=== PATIENT | female | born 1985 | race Caucasian/White ===

== ENCOUNTER 2017-07-09 21:48 | Inpatient (IN) | payer OTHER ==
[~2017-07-09] VITALS: Ht 165.1 cm; Wt 97.5 kg
[~2017-07-09 21:48] MED LIST: [UNRECOGNIZED DRUG - REMARK]; advil; motrin
[2017-07-09 22:02] VITALS: BP_SYST 145
[2017-07-09 23:33] LABS: BASOPHILS # (AUTO) 0.1 K/uL (0.0-0.2); BASOPHILS % (AUTO) 0.9 % (0.0-2.0); EOSINOPHILS # (AUTO) 0.1 K/uL (0.0-0.4); EOSINOPHILS % (AUTO) 1.6 % (0.0-4.0); HEMATOCRIT 38.8 % (36-48); HEMOGLOBIN 13.3 g/dL (12.0-16.0); LYMPHOCYTES # (AUTO) 1.8 K/uL (1.0-5.5); LYMPHOCYTES % (AUTO) 20.7 % (20.5-51.5); MEAN CORPUSCULAR HEMOGLOBIN 32 pg (27-31); MEAN CORPUSCULAR HGB CONC 34 % (32-36); MEAN CORPUSCULAR VOLUME 93 fL (79.0-98.0); MONOCYTES # (AUTO) 0.8 K/uL (0.0-1.0); MONOCYTES % (AUTO) 9.3 % (1.7-9.3); NEUTROPHILS # (AUTO) 6.1 K/uL (1.8-7.7); NEUTROPHILS % (AUTO) 67.5 % (40.0-70.0); PLATELET COUNT (AUTO) 235 K/uL (130-430); RED BLOOD CELL COUNT(AUTO) 4.18 MIL/uL (4.2-6.2); RED CELL DISTRIBUTION WIDTH 11.8 % (9.0-15.0); WHITE BLOOD COUNT (AUTO) 8.9 K/uL (4.8-10.8)
[2017-07-09 23:38] LABS: CALCIUM 9.5 mg/dL (8.4-11.0); CREATININE 0.73 mg/dL (0.55-1.30); POTASSIUM 3.8 mmol/L (3.5-5.1)
[2017-07-09 23:40] LABS: BILIRUBIN,URINE NEGATIVE (NEGATIVE); BLOOD, URINE NEGATIVE (NEGATIVE); CLARITY/URINE SL CLOUDY (CLEAR); COLOR,URINE YELLOW (YELLOW); GLUCOSE,URINE NEGATIVE (NEGATIVE); KETONES,URINE TRACE (NEGATIVE); LEUKOCYTE ESTERASE ,URINE NEGATIVE (NEGATIVE); NITRITE, URINE NEGATIVE (NEGATIVE); PROTEIN URINE TRACE (NEGATIVE)
[2017-07-09 23:53] LABS: ALBUMIN 3.1 g/dL (3.4-4.8); TOTAL BILIRUBIN 0.4 mg/dL (0.0-1.0)
[2017-07-10] MEDS ORDERED: VANCOMYCIN HCL 1,000 MG in NS 250 ML IV ONE (00:15)
[2017-07-10] MEDS ORDERED: VANCOMYCIN HCL 1000 MG/VIAL IV ONE (00:27)
[2017-07-10 00:53] VITALS: BP_SYST 146
[2017-07-10 04:00] VITALS: BP_SYST 115
[2017-07-10 07:02] LABS: BASOPHILS % (AUTO) 0.5 % (0.0-2.0); EOSINOPHILS # (AUTO) 0.2 K/uL (0.0-0.4); EOSINOPHILS % (AUTO) 2.4 % (0.0-4.0); HEMATOCRIT 33.5 % (36-48); HEMOGLOBIN 11.3 g/dL (12.0-16.0); LYMPHOCYTES # (AUTO) 1.5 K/uL (1.0-5.5); LYMPHOCYTES % (AUTO) 18.2 % (20.5-51.5); MEAN CORPUSCULAR HEMOGLOBIN 32 pg (27-31); MEAN CORPUSCULAR HGB CONC 34 % (32-36); MEAN CORPUSCULAR VOLUME 94 fL (79.0-98.0); MONOCYTES # (AUTO) 0.9 K/uL (0.0-1.0); MONOCYTES % (AUTO) 10.7 % (1.7-9.3); NEUTROPHILS # (AUTO) 5.6 K/uL (1.8-7.7); NEUTROPHILS % (AUTO) 68.2 % (40.0-70.0); PLATELET COUNT (AUTO) 221 K/uL (130-430); RED BLOOD CELL COUNT(AUTO) 3.57 MIL/uL (4.2-6.2); RED CELL DISTRIBUTION WIDTH 11.6 % (9.0-15.0); WHITE BLOOD COUNT (AUTO) 8.2 K/uL (4.8-10.8)
[2017-07-10 07:23] LABS: ALBUMIN 2.4 g/dL (3.4-4.8); CALCIUM 8.8 mg/dL (8.4-11.0); CREATININE 0.65 mg/dL (0.55-1.30); POTASSIUM 3.5 mmol/L (3.5-5.1); TOTAL BILIRUBIN 0.4 mg/dL (0.0-1.0)
[2017-07-10 08:00] VITALS: BP_SYST 131
[2017-07-10] MEDS ORDERED: MORPHINE 4 MG/ML INJ. SYRINGE IVP PRN (08:45)
[2017-07-10] MEDS ORDERED: MORPHINE 2 MG/ML INJ. SYRINGE IVP PRN (08:45)
[2017-07-10] MEDS ORDERED: TEMAZEPAM 15 MG CAPSULE PO PRN (08:45)
[2017-07-10] MEDS ORDERED: ONDANSETRON HCL 4 MG/2 ML VIAL IVP PRN (08:45)
[2017-07-10] MEDS: VANCOMYCIN HCL 1,000 MG in NS 250 ML IV SCH ×2 (09:13→18:28)
[2017-07-10] MEDS: CLINDAMYCIN 900 mg/50mL D5W 50 ML IV SCH ×3 (11:04→22:02)
[2017-07-10 12:29] VITALS: BP_SYST 116
[2017-07-10] MEDS: ACETAMINOPHEN 325 MG TABLET PO PRN (12:47)
[2017-07-10 17:02] VITALS: BP_SYST 114
[2017-07-10 20:15] VITALS: BP_SYST 121
[2017-07-11 00:28] VITALS: BP_SYST 110
[2017-07-11] MEDS: VANCOMYCIN HCL 1,000 MG in NS 250 ML IV SCH ×3 (02:07→18:13)
[2017-07-11 04:06] VITALS: BP_SYST 129
[2017-07-11] MEDS: CLINDAMYCIN 900 mg/50mL D5W 50 ML IV SCH ×3 (05:15→23:28)
[2017-07-11 08:34] VITALS: BP_SYST 118
[2017-07-11] MEDS: ACETAMINOPHEN 325 MG TABLET PO PRN ×2 (11:15→22:22)
[2017-07-11 12:14] VITALS: BP_SYST 107
[2017-07-11 16:15] VITALS: BP_SYST 111
[2017-07-11] MEDS ORDERED: CEFEPIME 1 GM/VIAL (MAXIPIME) ONE (23:01)
[2017-07-11] MEDS: CEFEPIME 1 GM in D5W 50 ML IV SCH (23:55)
[2017-07-12 00:49] VITALS: BP_SYST 133
[2017-07-12] MEDS: VANCOMYCIN HCL 1,000 MG in NS 250 ML IV SCH ×3 (02:14→17:42)
[2017-07-12 04:27] VITALS: BP_SYST 109
[2017-07-12] MEDS: CLINDAMYCIN 900 mg/50mL D5W 50 ML IV SCH ×3 (05:46→22:54)
[2017-07-12 08:35] VITALS: BP_SYST 120
[2017-07-12] MEDS: ACETAMINOPHEN 325 MG TABLET PO PRN ×2 (08:56→23:37)
[2017-07-12] MEDS: CEFEPIME 1 GM in D5W 50 ML IV SCH ×2 (09:17→21:55)
[2017-07-12 11:25] VITALS: BP_SYST 108
[2017-07-12] MEDS: SUMAtriptan SUCCINATE 50 MG TABLET PO PRN (13:31)
[2017-07-12 15:22] VITALS: BP_SYST 115
[2017-07-13 01:09] VITALS: BP_SYST 111
[2017-07-13] MEDS: VANCOMYCIN HCL 1,000 MG in NS 250 ML IV SCH ×3 (02:12→17:40)
[2017-07-13 04:12] VITALS: BP_SYST 115
[2017-07-13] MEDS: ACETAMINOPHEN 325 MG TABLET PO PRN ×3 (05:13→20:15)
[2017-07-13] MEDS: CLINDAMYCIN 900 mg/50mL D5W 50 ML IV SCH ×3 (05:14→22:56)
[2017-07-13] MEDS ORDERED: SUMAtriptan SUCCINATE 50 MG TABLET PO ONE (06:30)
[2017-07-13 07:13] LABS: BASOPHILS % (AUTO) 0.6 % (0.0-2.0); EOSINOPHILS # (AUTO) 0.3 K/uL (0.0-0.4); EOSINOPHILS % (AUTO) 5.1 % (0.0-4.0); HEMATOCRIT 34.5 % (36-48); HEMOGLOBIN 11.5 g/dL (12.0-16.0); LYMPHOCYTES # (AUTO) 2.2 K/uL (1.0-5.5); LYMPHOCYTES % (AUTO) 34.6 % (20.5-51.5); MEAN CORPUSCULAR HEMOGLOBIN 31 pg (27-31); MEAN CORPUSCULAR HGB CONC 33 % (32-36); MEAN CORPUSCULAR VOLUME 93 fL (79.0-98.0); MONOCYTES # (AUTO) 0.6 K/uL (0.0-1.0); NEUTROPHILS # (AUTO) 3.4 K/uL (1.8-7.7); NEUTROPHILS % (AUTO) 49.7 % (40.0-70.0); PLATELET COUNT (AUTO) 292 K/uL (130-430); RED BLOOD CELL COUNT(AUTO) 3.71 MIL/uL (4.2-6.2); RED CELL DISTRIBUTION WIDTH 11.6 % (9.0-15.0); WHITE BLOOD COUNT (AUTO) 6.5 K/uL (4.8-10.8)
[2017-07-13] MEDS: CEFEPIME 1 GM in D5W 50 ML IV SCH ×2 (08:27→22:01)
[2017-07-13 08:44] VITALS: BP_SYST 121
[2017-07-13 12:54] VITALS: BP_SYST 115
[2017-07-13 16:18] VITALS: BP_SYST 118
[2017-07-14 00:43] VITALS: BP_SYST 110
[2017-07-14] MEDS: VANCOMYCIN HCL 1,000 MG in NS 250 ML IV SCH ×2 (02:29→09:38)
[2017-07-14 04:35] VITALS: BP_SYST 117
[2017-07-14] MEDS: CLINDAMYCIN 900 mg/50mL D5W 50 ML IV SCH (05:32)
[2017-07-14 08:05] VITALS: BP_SYST 124
[2017-07-14] MEDS: SUMAtriptan SUCCINATE 50 MG TABLET PO PRN (08:40)
[2017-07-14] MEDS: CEFEPIME 1 GM in D5W 50 ML IV SCH (10:56)
[2017-07-14 11:41] VITALS: BP_SYST 118
[2017-07-14 12:33] LABS: CALCIUM 9.1 mg/dL (8.4-11.0); CREATININE 0.69 mg/dL (0.55-1.30); POTASSIUM 3.8 mmol/L (3.5-5.1)
[2017-07-14 12:39] LABS: ALBUMIN 2.7 g/dL (3.4-4.8); TOTAL BILIRUBIN 0.2 mg/dL (0.0-1.0)
[2017-07-14 14:37] VITALS: BP_SYST 112
== END 2017-07-14 16:20 | disposition home or self-care (01) | DRG 603 ==
LOC: SED 21:48 → SMU 07-10 00:40
PROVIDERS: ADMIT Internal Medicine Hospice and Palliative Medicine; ATTEND Internal Medicine Hospice and Palliative Medicine
DX: L03.115 Cellulitis of right lower limb (principal); E66.9 Obesity, unspecified; S70.11XA Contusion of right thigh, initial encounter; L02.415 Cutaneous abscess of right lower limb; G43.909 Migraine, unspecified, not intractable, without status migrainosus; X58.XXXA Exposure to other specified factors, initial encounter; Z88.0 Allergy status to penicillin; Z98.891 History of uterine scar from previous surgery; Z79.899 Other long term (current) drug therapy; Z68.35 Body mass index [BMI] 35.0-35.9, adult; Z88.1 Allergy status to other antibiotic agents; Y92.89 Other specified places as the place of occurrence of the external cause; Y99.8 Other external cause status; Y93.39 Activity, other involving climbing, rappelling and jumping off
CPT/HCPCS: 36415; 73720; 80053; 80202-TC; 81003; 83605; 85025; 87040-TC; 87070-TC; 96365; 96366; 99285; J0692; J2270; J2405; J3370; J3490; J7040; J7050; J7060

== ENCOUNTER 2021-04-07 20:11 | Emergency (ER) | payer OTHER ==
[~2021-04-07] VITALS: Ht 165.1 cm; Wt 104.3 kg
[2021-04-07 20:25] VITALS: BP_SYST 136
--- NOTE | 2021-04-07 20:25 | NUR ---
Patient triaged and placed in waiting room. VSS and patient appears in no acute distress at this time. Accompanied by , awaiting available bed, and MD notified of need for MSE.
--- NOTE | 2021-04-07 22:40 | NUR ---
Received patient to ER w/ c/o lac to right lateral Patient resting quietly. No acute distress noted. Vital signs within normal range. Introduced self to patient, positioned for comfort. Bed to low position sr up. continue to monitor.
--- NOTE | 2021-04-07 22:40 | NUR ---
Patient to ER bed H3 to gown for evaluation. Side rails up.
--- NOTE | 2021-04-07 23:01 | NUR ---
ER at bedside examining patient.
[2021-04-07] MEDS ORDERED: LIDOCAINE 1% 10 MG/ML, 20 ML MDV INJ ONE (23:15)
[2021-04-07] MEDS ORDERED: LIDOCAINE VISCOUS 2%, 15 ML UDC MM ONE (23:15)
[2021-04-07] MEDS ORDERED: BACI15OI13 TP (23:18)
--- NOTE | 2021-04-07 23:38 | NUR ---
Note khoa in ED - 04/08/21 at 0001 by [email or web address] Patient has a 1.5 cm laceration to right hand. Dr. Johnson applied sutures using sterile technique. Edges well approximated. Site cleansed with NSS+ Betadine. Dressing of NONE-Adhesive applied to site. No bleeding noted. Pt tolerated well.
--- NOTE | 2021-04-07 23:40 | NUR ---
Moved patient to bed 3.
--- NOTE | 2021-04-07 23:45 | NUR ---
Patient has a 1.5 cm laceration to right hand. Dr. Johnson applied sutures using sterile technique. Edges well approximated. Site cleansed with NSS+ Betadine. Dressing of NONE-Adhesive applied to site. No bleeding noted. Pt tolerated well.
[2021-04-08 00:13] VITALS: BP_SYST 130
--- NOTE | 2021-04-08 00:13 | NUR ---
Patient given written and verbal discharge instructions and verbalizes understanding. ER MD discussed with patient the results and treatment provided. Patient in stable condition. ID arm band removed. Rx of Bacitracin given. Patient educated on pain management and to follow up with PMD. Pain Scale 3. Opportunity for questions provided and answered. Medication side effect fact sheet provided.
== END 2021-04-08 00:13 | disposition home or self-care (01) ==
LOC: SED 20:11
DX: S61.411A Laceration without foreign body of right hand, initial encounter (principal); Z88.0 Allergy status to penicillin; Z88.1 Allergy status to other antibiotic agents; Z79.899 Other long term (current) drug therapy; W45.8XXA Other foreign body or object entering through skin, initial encounter; Y93.89 Activity, other specified; Y92.89 Other specified places as the place of occurrence of the external cause; Y99.8 Other external cause status
CPT/HCPCS: 12001; 99282; J2001